=== PATIENT | male | born 1965 | race Caucasian/White ===

== ENCOUNTER 2025-01-30 05:22 | Observation (INO) ==
--- NOTE | 2024-12-17 12:36 | PAT Medication Instructions ---
Medication Instructions Date of Service December 17, 2024 Home Medications Medication Instructions Recorded celecoxib 100 mg capsule (Celebrex) 100 mg PO BID #60 caps 11/17/24 tramadol 50 mg tablet 50 mg PO DAILY PRN pain #30 tabs 12/09/24 testosterone undecanoate 100 mg 100 mg PO QAM #30 caps 12/16/24 capsule multivitamin 1 tab PO QAM celecoxib 100 mg capsule (Celebrex) 100 mg PO BID tramadol 50 mg tablet 50 mg PO DAILY PRN pain testosterone undecanoate 100 mg capsule 100 mg PO QAM amlodipine 2.5 mg tablet 2.5 mg PO QAM atorvastatin 20 mg tablet (Lipitor) 20 mg PO QAM losartan 100 mg-hydrochlorothiazide 25 mg tablet 1 tab PO QAM pantoprazole 20 mg tablet,delayed release (Protonix) 20 mg PO QAM Continue as directed testosterone undecanoate 100 mg capsule 100 mg PO QAM ASK your surgeon for instructions celecoxib 100 mg capsule (Celebrex) 100 mg PO BID DO NOT take the morning of surgery multivitamin 1 tab PO QAM losartan 100 mg-hydrochlorothiazide 25 mg tablet 1 tab PO QAM Take morning of surgery With a small sip of water, OTHERWISE NOTHING TO EAT OR DRINK AFTER MIDNIGHT: tramadol 50 mg tablet 50 mg PO DAILY PRN pain (if needed) amlodipine 2.5 mg tablet 2.5 mg PO QAM atorvastatin 20 mg tablet (Lipitor) 20 mg PO QAM pantoprazole 20 mg tablet,delayed release (Protonix) 20 mg PO QAM Take evening before surgery tramadol 50 mg tablet 50 mg PO DAILY PRN pain (if needed) Other Notes If you have any questions please call us at [phone] or [phone] or [phone] or [phone]
--- NOTE | 2024-12-24 13:36 | Anesthesiology Consultation ---
Date of Service December 24, 2024 Assessment & Plan (1) Encounter for pre-operative examination: Chart Review Chart Review: Acceptable Risk for Surgery and Patient seen in Pre Admission Testing Pt currently scheduled as 23 hours observation. If surgeon decides to change patient to Same Day Joint, patient would be acceptable risk for FLORENCIO, pending patient is motivated, has good support and surgeon's office completes [facility] Program preop requirements. Per PAT appt on 12/24/24, patient with mild cough and post nasal drip. Symptom onset >11 days from surgery date. No recent sick contacts or recent illness/disease positive tests. Will leave to surgeon's discretion if preop Covid testing needed. Patient educated symptoms will need resolved by DOS History Surgery Operation Date: 01/30/25 09:00 Proposed Procedures p Right Anterior Total Hip Arthroplasty - Last Myers DO Height/Weight Height: 6 ft 1 in Weight: 123.377 kg Allergies Allergy/AdvReac Type Severity Reaction Status Date / Time NSAIDS (Non-Steroidal AdvReac Intermediate See below Verified 12/24/24 13:31 Anti-Inflamma Medications Home Medications Medication Instructions Recorded Confirmed Last Taken multivitamin 1 tab PO QAM 04/17/23 12/17/24 04/17/23 celecoxib 100 mg capsule (Celebrex) 100 mg PO BID #60 caps 11/17/24 12/17/24 Unknown tramadol 50 mg tablet 50 mg PO DAILY PRN pain #30 tabs 12/09/24 12/17/24 Unknown testosterone undecanoate 100 mg 100 mg PO QAM #30 caps 12/16/24 12/17/24 Unknown capsule amlodipine 2.5 mg tablet 2.5 mg PO QAM 12/17/24 12/17/24 Unknown atorvastatin 20 mg tablet (Lipitor) 20 mg PO QAM 12/17/24 12/17/24 Unknown losartan 100 1 tab PO QAM 12/17/24 12/17/24 Unknown mg-hydrochlorothiazide 25 mg tablet pantoprazole 20 mg tablet,delayed 20 mg PO QAM 12/17/24 12/17/24 Unknown release (Protonix) Past Medical History Medical History Anemia hx, no recent issues Benign essential hypertension History of blood transfusion (2022) Hx of gastritis (2022) denies GERD (due to too many NSAIDs) Hx of psoriasis Hyperlipidemia Exercise / Class Metabolic Activity II 4-5 Yardwork/Stairs/Walk up hill (one flight of stairs - no chest pain or SOB ) Past Family History Family History Mother Pulmonary embolism Grandfather (Maternal) Lung cancer Father Emphysema, unspecified Past Surgical History Surgical History History of esophagogastroduodenoscopy (EGD) (2022) Past Anesthesia History No Hx of Anesthesia Complications and No Family Hx of Anesthesia Complications History of PONV No Hx of PONV and No Hx of Motion Sickness Social History Smoking Status: Former smoker Do You Dip or Chew Tobacco: No (quit 25 years ago; advised) Smoking End Date: 30 years ago Hx Alcohol Use: Yes Alcohol type: beer alcohol intake frequency: 0-2 drinks per day (2 beers/day) Hx Substance Use: No substance use type: does not use Review of Systems - Mild cough/post nasal drip x 2-3 days. Patient denies chest pain, shortness of breath, dyspnea on exertion, reflux, cough, wheezing, palpitations. No hx of seizures, stroke, AK, apnea/snoring. No hx of blood clots Physical Exam Vital Signs VITALS BP 131/81 P 88 TEMP 97.8 SP02 94% RESP 16 Constitutional no acute distress ENMT Mouth: no TMJ clicking Thyromental Distance: > or= 3.5 Finger Breadths (3.5) Mallampati Class: III Caps to side tooth Neck neck extension not limited Respiratory normal respiratory effort; no respiratory distress Auscultation: lungs clear to auscultation bilaterally; no wheezes Cardiovascular Rate/Rhythm: regular rate and regular rhythm Heart Sounds: no murmur Vessels: no carotid bruit Musculoskeletal Spine: no pain with cervical ROM Extremities: extremities normal to inspection Psychiatric Orientation: alert Lab Results Anesthesia Preop Results Results Anesthesia Widget: WBC 7.19 K/ul (4.8-10.8) 12/24/24 Hgb 12.5 g/dl (14.0-18.0) L 12/24/24 Hct 38.3 % (42.0-52.0) L 12/24/24 Plt 291 K/uL (130-400) 12/24/24 Na 139 mmol/L (136-145) 12/24/24 K 3.9 mmol/L (3.5-5.1) 12/24/24 Cl 100 mmol/L (98-107) 12/24/24 CO2 32 mmol/L (21-32) 12/24/24 BUN 19 mg/dl (6-23) 12/24/24 Creat 1.11 mg/dl (0.6-1.4) 12/24/24 Glucose Level 99 mg/dl (70-99(Fasting)) 12/24/24 PT 10.3 Seconds (9.0-12.0) 12/24/24 PTT 29 Seconds (21-31) 12/24/24 INR 0.9 (0.9-1.1) 12/24/24 Blood Type A Negative 12/24/24 Antibody Screen NEGATIVE 12/24/24 Testing Electrocardiogram Date: 12/24/24 Findings: + NSR @ (88bpm) Low voltage QRS Inferior infarct, age undetermined When compared to EKG from April 17, 2022- no significant change was found per cardio Chest X-Ray Date: 12/24/24 Findings: + NAD
--- NOTE | 2025-01-28 12:27 | History & Physical Report ---
Date of Service January 28, 2025 Assessment & Plan (1) Osteoarthritis of right hip: We will proceed with a right anterior total of arthroplasty. Postoperatively, he will be started on aspirin for DVT prophylaxis and kept overnight in the hospital for postop medical management. He plans to use [facility] upon discharge. History of Present Illness Chief Complaint: Osteoarthritis of the right hip. Primary Care Provider: ALEX Fung Abilio is a pleasant 59-year-old male who has been dealing with chronic increasing right hip and groin pain. X-rays and clinical exam have been diagnostic for advanced osteoarthritis of the right hip. He has been seeing one of the nonoperative providers in our office. Unfortunately, after failing a y ear of conservative treatment, he has elected to proceed with a right anterior total hip arthroplasty. . Allergies Allergy/AdvReac Type Severity Reaction Status Date / Time NSAIDS (Non-Steroidal AdvReac Intermediate See below Verified 01/21/25 08:28 Anti-Inflamma Home Medications Medication Instructions Recorded Confirmed Type multivitamin 1 tab PO QAM 04/17/23 01/21/25 History celecoxib 100 mg capsule (Celebrex) 100 mg PO BID #60 caps 11/17/24 01/21/25 Rx testosterone undecanoate 100 mg 100 mg PO QAM #30 caps 12/16/24 01/21/25 Rx capsule amlodipine 2.5 mg tablet 2.5 mg PO QAM 12/17/24 01/21/25 History atorvastatin 20 mg tablet (Lipitor) 20 mg PO QAM 12/17/24 01/21/25 History losartan 100 1 tab PO QAM 12/17/24 01/21/25 History mg-hydrochlorothiazide 25 mg tablet pantoprazole 20 mg tablet,delayed 20 mg PO QAM 12/17/24 01/21/25 History release (Protonix) tramadol 50 mg tablet 50 mg PO DAILY PRN pain #30 tabs 01/15/25 01/21/25 Rx Past Med/Surg History Problem List Osteoarthritis of right hip Osteoarthritis of knees, bilateral Obesity Hyperlipidemia Effusion, left knee (Acute) Arthritis of knee, left Benign essential hypertension Psoriasis Medical History Hx of gastritis (2022) denies GERD (due to too many NSAIDs) Hx of psoriasis Hyperlipidemia Benign essential hypertension History of blood transfusion (2022) Anemia hx, no recent issues Surgical History History of esophagogastroduodenoscopy (EGD) (2022) Family History Mother Pulmonary embolism Grandfather (Maternal) Lung cancer Father Emphysema, unspecified Social History Smoking Status: Former smoker Tobacco Type: Cigarettes Age Started Using Tobacco: 12; Age Quit Using Tobacco: 32; packs per day: 1; Second Hand Exposure: Yes (hx growing up); Do You Dip or Chew Tobacco: No (quit 25 years ago; advised); Hx Alcohol Use: Yes Alcohol type: beer Hx Substance Use: No Preferred Language: Irish Communication Ability: Effective Lead Consultant Required: No Beliefs That Will Affect Care: None marital status: Legally Current Living Situation: Family Current Living Situation Comment: son Feels Safe at Home: Yes Assistive Devices: Glasses Review of Systems All systems reviewed & are unremarkable except as noted in HPI & below. Physical Exam On physical exam of the right hip, he has decreased range of motion. He has pain with internal/external rotation. Most of his pain is located in the groin.. Constitutional WD/WN, vitals as above Eyes PERRL, conjunctivae normal, anicteric sclerae ENMT external ear and nose normal, oropharynx normal Neck trachea midline, no thyromegaly Respiratory normal respiratory effort Cardiovascular RRR, no murmur, no edema Gastrointestinal (Abdomen) normal bowel sounds, soft, nontender, no hepatosplenomegaly Psychiatric A+Ox3, euthymic affect Results & Data Results & Data Laboratory Results . Diagnostic Findings X-rays of the right hip show advanced osteoarthritis with joint space narrowing, osteophyte formation, and [id number] articulation. PG Care Time/CCT Total # of Minutes Spent Total Time Spent with Patient: Total time spent is greater than 50% in coordination of care (as documented) at patient's floor/unit and/or counseling patient: Coding Level of Care Code None Diagnoses Osteoarthritis of right hip M16.11
[~2025-01-30 05:22] MED LIST: ALLERGY Noted to ORDERED Medication SCH
[2025-01-30] MEDS: LR 500ML BOLUS, THEN 15ML/HR IV SCH (05:47)
[2025-01-30] MEDS ORDERED: ROPIVACAINE 0.5% HCL/PF 246 MG, Ketorolac (*for OR use only*) 30 MG, EPINEPHrine 30MG/3... INFIL SCH (06:00)
[2025-01-30] MEDS: ACETAMINOPHEN 500 MG TAB PO SCH ×2 (06:18→14:00)
[2025-01-30] MEDS: FAMOTIDINE 20 MG TAB PO SCH (06:18)
[2025-01-30] MEDS: GABAPENTIN 600 MG DOSE PO SCH (06:18)
[2025-01-30] MEDS: LR 60ML/HR IV SCH (06:18)
[2025-01-30] MEDS: dexAMETHasone**PF** 10 MG/ML VIAL IV SCH (06:19)
[2025-01-30] MEDS ORDERED: BUPIVACAINE 0.5 % 5 MG/1 ML PF 10ML VIAL ONE (06:25)
[2025-01-30] MEDS ORDERED: ONDANSETRON INJ 2 MG/ML 2 ML VIAL ONE (06:28)
[2025-01-30] MEDS ORDERED: MIDAZOLAM HCL 1 MG/ML 2ML VIAL ONE ×2 (06:28→06:46)
[2025-01-30] MEDS ORDERED: PROPOFOL IV EMULSION 10 MG/ML 20 ML VIAL IV ONE ×2 (06:28→08:20)
--- NOTE | 2025-01-30 06:40 | History & Physical Bridge Note ---
Date of Service January 30, 2025 History & Physical Bridge Note I have examined the patient, reviewed the History & Physical and in the interval since the performance of the History & Physical I have noted the following changes of clinical significance: no changes noted
[2025-01-30] MEDS: TRANEXAMIC ACID 1,000 MG **IV Pre-op IV SCH (06:45)
--- NOTE | 2025-01-30 06:49 | Anesthesiology Consultation ---
Date of Service January 30, 2025 Assessment & Plan Chart Review Chart Review: Acceptable Risk for Surgery Consults Requested none History Surgery Operation Date: 01/30/25 07:00 Proposed Procedures p Right Anterior Total Hip Arthroplasty - Last Myers DO Height/Weight Height: 6 ft 1 in Weight: 122.3 kg Allergies Allergy/AdvReac Type Severity Reaction Status Date / Time NSAIDS (Non-Steroidal AdvReac Intermediate See below Verified 01/30/25 05:40 Anti-Inflamma Medications Home Medications Medication Instructions Recorded Confirmed Last Taken multivitamin 1 tab PO QAM 04/17/23 01/30/25 01/29/25 07:00 celecoxib 100 mg capsule (Celebrex) 100 mg PO BID #60 caps 11/17/24 01/30/25 01/22/25 07:00 testosterone undecanoate 100 mg 100 mg PO QAM #30 caps 12/16/24 01/30/25 01/29/25 07:00 capsule amlodipine 2.5 mg tablet 2.5 mg PO QAM 12/17/24 01/30/25 01/30/25 03:30 atorvastatin 20 mg tablet (Lipitor) 20 mg PO QAM 12/17/24 01/30/25 01/29/25 07:00 losartan 100 1 tab PO QAM 12/17/24 01/30/25 01/30/25 03:30 mg-hydrochlorothiazide 25 mg tablet (Hyzaar) pantoprazole 20 mg tablet,delayed 20 mg PO QAM 12/17/24 01/30/25 01/30/25 03:30 release (Protonix) tramadol 50 mg tablet 50 mg PO DAILY PRN pain #30 tabs 01/15/25 01/30/25 01/30/25 03:30 Active Medications Generic Name Dose Route Start Last Admin Trade Name Freq PRN Reason Stop Dose Admin Acetaminophen 1,000 mg 01/30/25 06:00 01/30/25 06:18 Acetaminophen 500 Mg Tab PO 01/30/25 18:00 1,000 mg PREOP ROSE Administration Dexamethasone Sodium Phosphate 10 mg 01/30/25 06:00 01/30/25 06:19 DexamethasonePf 10 Mg/Ml Vial IV 01/30/25 18:00 10 mg PREOP ROSE Administration Famotidine 20 mg 01/30/25 06:00 01/30/25 06:18 Famotidine 20 Mg Tab PO 01/30/25 18:00 20 mg PREOP ROSE Administration Gabapentin 600 mg 01/30/25 06:00 01/30/25 06:18 Gabapentin 600 Mg Dose PO 01/30/25 18:00 600 mg PREOP ROSE Administration Lactated Ringer's 1,000 mls @ 15 mls/hr 01/30/25 06:00 01/30/25 05:47 Lr IV 01/30/25 18:00 15 mls/hr .Q24H ROSE Administration Lactated Ringer's 1,000 mls @ 60 mls/hr 01/30/25 06:00 01/30/25 06:18 Lr IV 01/30/25 22:39 Not Given .[id number] ROSE Tranexamic Acid 1,000 mg in 100 mls @ 600 mls/hr 01/30/25 06:00 01/30/25 06:45 Tranexamic Acid / 0.7% Nacl IV 01/30/25 18:00 600 mls/hr TODAY@0600 ROSE Administration NPO Date Last Intake of Fluids: 01/29/25 Time Last Intake of Fluids: 19:00 Date Last Intake of Solids: 01/29/25 Time Last Intake of Solids: 15:00 Past Medical History Medical History Hx of gastritis (2022) denies GERD (due to too many NSAIDs) Hx of psoriasis Hyperlipidemia Benign essential hypertension History of blood transfusion (2022) Anemia hx, no recent issues Past Family History Family History Mother Pulmonary embolism Grandfather (Maternal) Lung cancer Father Emphysema, unspecified Past Surgical History Surgical History History of esophagogastroduodenoscopy (EGD) (2022) Social History Smoking Status: Former smoker Do You Dip or Chew Tobacco: No (quit 25 years ago; advised) Smoking End Date: 30 years ago Hx Alcohol Use: Yes Alcohol type: beer alcohol intake frequency: 0-2 drinks per day (2 beers/day) Hx Substance Use: No substance use type: does not use Physical Exam Vital Signs Last Vital Signs Temp 36.9 C 01/30/25 05:51 Pulse 99 H 01/30/25 05:51 Resp 20 01/30/25 05:51 Pulse Ox 95 01/30/25 05:51 O2 Del Method Room Air 01/30/25 05:51
[2025-01-30] MEDS: ceFAZolin 3000MG 3,000 MG/72.5 ML BAG IV SCH (07:00)
[2025-01-30] MEDS ORDERED: PHENYLEPHRINE 100MCG/ML 5ML SYR ONE ×3 (07:23→08:07)
[2025-01-30] MEDS ORDERED: ePHEDrine sulfate 50 MG/5 ML SYR ONE (07:23)
[2025-01-30] MEDS: ROPIV 0.5% 246mg, Ketorolac 30mg, EPINEPHrine 0.5mg in NSS INFIL SCH (07:33)
[2025-01-30] MEDS: TRANEXAMIC ACID 1,000 MG **IV Intra-op IV SCH (08:12)
--- NOTE | 2025-01-30 08:18 | Operative Report ---
PG Post Operative Report Pre & Post Diagnosis Operation Date: 01/30/25 07:00 Pre-Op Diagnosis: Left Hip Arthritis Post-Op Diagnosis: Left Hip Arthritis I identified the patient and participated in the time-out.: Yes Procedure Operation Date: 01/30/25 07:00 Actual Procedures p Right Anterior Total Hip Arthroplasty(Right) - Last Myers DO Surgeon Last Myers DO Environmental Advisor Tutu German PA-C Estimated Blood Loss 250 Findings Consistent with Post-Op Diagnosis Specimens Right femoral head Description of Procedure Implants used I used a [employer]immer[employer]omet total hip arthroplasty system with a size 1 Z1 high offset stem, a 54 mm G7 cup with a 25mm screw, an E1 polyethylene liner, a 40 mm ceramic head with a +7 neck. Abilio arrived at the hospital for the above procedure. He was seen in the preoperative holding area and the operative extremity was identified and signed. He was given a spinal anesthetic, a preoperative antibiotic, and TXA. He was then taken back to the operating room and laid on the table in the supine position. He was given basic sedation. The operative leg was secured to a Puristst leg positioner. The hip was then prepped and draped in sterile fashion. A timeout was done and the patient and the operative extremity was properly identified. An anterior approach was used. Dissection was taken down through the fascia and the tensor muscle belly was retracted laterally and the rectus was retracted medially. The circumflex vessels were identified and ligated. The capsule was then incised and tagged for later repair. The femoral neck was then cut and the femoral head was removed. The acetabulum was exposed. Time was spent doing a complete circumferential labral release. Sequential reaming of the acetabulum up to a size 53 reamer was done. Final reamings were done under fluoroscopy to ensure appropriate version. A Biomet 54 mm G7 cup was then impacted into place. A single 25 mm screw was placed. The E1 polyethylene liner was then snapped into place. Surrounding soft tissues were then injected with 100 cc of an orthopedic pain control cocktail. The proximal femur was then exposed. Sequential broaching up to a size 1 broach was done. Off that broach a size 40 head with a +7 neck was trialed. The hip was reduced and fluoroscopic images showed anatomic alignment of the implants in acceptable length. The broach was removed. The final size 1 high offset Z1 stem was then impacted into place. A ceramic 40 mm head with a +7 neck was then impacted onto the stem and the hip was reduced. Final fluoroscopic images showed anatomic alignment of the hip. The capsule was then closed with #1 Vicryl suture. A dilute betadyne lavage was then done for 3 minutes. The joint was then irrigated with normal saline solution. The fascia was closed with #1 PDS suture. Skin was closed with 2-0 Vicryl, karen, and a Silverlon dressing. He was then transferred to a hospital bed and taken to the post anesthesia care unit in stable condition. He tolerated the procedure well. Tutu German PA-C, was present for the entire procedure. He was critical for patient positioning, prepping, draping, retraction exposure, wound closure and application of sterile dressing. I attest to the content of the Intraoperative Record and any orders documented therein. Any exceptions are noted below.
[2025-01-30] MEDS ORDERED: ONDANSETRON INJ 2 MG/ML 2 ML VIAL IV PRN ×2 (08:39→11:15)
[2025-01-30] MEDS ORDERED: fentaNYL citrate PF 100 MCG/2 ML VIAL IV PRN (08:39)
[2025-01-30] MEDS ORDERED: PROMETHAZINE HCL 6.25 MG in SODIUM CHLORIDE 0.9% 50 ML IV PRN (08:39)
[2025-01-30] MEDS ORDERED: ePHEDrine sulfate 50 MG/ML AMP IV PRN (08:39)
[2025-01-30] MEDS ORDERED: ATROPINE SULFATE 0.1 MG/ML 10ML SYR IV PRN (08:39)
[2025-01-30] MEDS ORDERED: HYDROmorphone INJ 2 MG/ML SYR/VIAL IV PRN (08:39)
--- NOTE | 2025-01-30 08:57 | Fluoroscopy Report ---
FL hip RT 1V CLINICAL HISTORY: RIGHT ANTERIOR HIPright hip arthroplasty COMPARISON STUDY: November 05, 2024 FLUOROSCOPY TIME: 32.1 seconds FLUOROSCOPY IMAGES: 1 EXPOSURE DOSE: 11.579 mGy FINDINGS: Satisfactory alignment of the right hip arthroplasty. Expected postoperative soft tissue sw elling with deep tissue air. No acute fracture or unexpected opaque foreign body. IMPRESSION: Fluoroscopic assistance as above. ACT 112: Negative or not required by law. Electronically signed by: Zenon oSlis M.D. 01/30/2025 8:55 AM
--- NOTE | 2025-01-30 09:14 | XRay Report ---
XR hip 1V RT w pelvis CLINICAL HISTORY: Postoperative evaluation. COMPARISON: Right hip radiographs November 05, 2014. FINDINGS: Alignment of the total right hip arthroplasty is anatomic. There is no periprosthetic frac ture or unexpected radiopaque foreign body. There are skin karen. IMPRESSION: Expected findings following total right hip arthroplasty. ACT 112: Negative or not required by law. Electronically signed by: Adrian Sykes M.D. 01/30/2025 9:12 AM
[2025-01-30] MEDS ORDERED: MAGNESIUM HYDROXIDE SUSP 30 ML UDC PO PRN (11:15)
[2025-01-30] MEDS ORDERED: METOCLOPRAMIDE HCL INJ 5 MG/ML 2 ML VIAL IV PRN (11:15)
[2025-01-30] MEDS ORDERED: bisacodyL 10 MG SUPP PR PRN (11:15)
[2025-01-30] MEDS ORDERED: HYDROmorphone INJ 0.5 MG/0.5 ML SYR IV PRN (11:15)
[2025-01-30] MEDS ORDERED: oxyCODONE HCL IR 5 MG TAB (IMMEDIATE RELEASE) PO PRN (11:15)
[2025-01-30] MEDS ORDERED: NALOXONE HCL 0.4 MG/1 ML VIAL/CARP IV PRN (11:15)
[2025-01-30] MEDS: KETOROLAC TROMETHAMINE 15 MG/ML VIAL IV SCH (11:30)
[2025-01-30] MEDS: SODIUM CHLORIDE 0.9% 1,000 ML IV SCH (11:30)
[2025-01-30] MEDS ORDERED: PANTOprazole 40 MG TAB PO SCH (11:30)
--- NOTE | 2025-01-30 11:31 | Anesthesiology Progress Note ---
Date of Service January 30, 2025 Anesthesia Post Procedure Vital Signs Vital Signs: Temp Pulse Pulse Resp BP Pulse Ox O2 Del Method 01/30/25 10:30 88 20 135/85 94 Room Air 01/30/25 10:15 36.7 C 94 H 19 121/96 96 Room Air 01/30/25 10:00 85 19 131/87 97 Room Air 01/30/25 09:45 87 19 142/87 H 93 Room Air 01/30/25 09:30 84 16 117/78 94 Room Air 01/30/25 09:15 89 16 113/78 96 Room Air 01/30/25 09:10 36.5 C 92 H 14 105/76 95 Room Air 01/30/25 09:00 95 H 15 105/69 95 Room Air 01/30/25 08:50 95 H 13 101/70 96 Room Air 01/30/25 08:43 36.5 C 103 H 12 103/66 94 Room Air, Oxymask 01/30/25 05:51 36.9 C 99 H 20 95 Room Air Pain Intensity Right Hip: Pain Intensity: 5 Transfer of Care Handoff Completed per policy Notes Mental Status: alert / awake / arousable and participated in evaluation Patient Amnestic to Procedure: Yes Nausea / Vomiting: adequately controlled Pain: adequately controlled Airway Patency, RR, SpO2: stable & adequate BP & HR: stable & adequate Hydration State: stable & adequate Neuraxial Anesthesia: was administered and sensory block is resolving Anesthetic Complications: no major complications apparent and Pt Satisfied with anesthetic care
[2025-01-30] MEDS: DOCUSATE SODIUM 100 MG CAP PO SCH (11:33)
[2025-01-30] MEDS: MULTIVITAMIN TAB PO SCH (12:46)
[2025-01-30] MEDS: ATORVASTATIN 20 MG TAB PO SCH (12:46)
[2025-01-30] MEDS: ASPIRIN 81 MG ECTAB PO SCH (12:46)
[2025-01-30] MEDS: amLODIPine BESYLATE 5 MG TAB PO SCH (12:46)
[2025-01-30] MEDS: LOSARTAN/HCTZ 50/12.5MG TAB PO SCH (12:47)
[2025-01-30] MEDS: PANTOprazole 40 MG TAB PO SCH (12:47)
[2025-01-30] MEDS: ceFAZolin 2000MG 2,000 MG/15 ML SYR IV SCH (14:00)
[2025-01-30] MEDS: SENNA 8.6 MG TAB PO SCH (20:25)
[2025-01-30 23:15] VITALS: RESP 16
--- NOTE | 2025-01-31 06:56 | Orthopedic Progress Note ---
Date of Service January 31, 2025 Assessment & Plan (1) Status post right hip replacement: Overall he is doing very well. He is not having much pain in the right hip. He did have some drainage beneath his dressing last night. I talked to the nursing staff and they will change his dressing today. He will be seen by physical therapy today for ambulation and range of motion exercises. He can be discharged to home later today. He will follow-up with orthopedics in 2 weeks. Ricardo Knox was seen and examined at bedside this morning. Overall he is doing very well. He is not having much pain in the right hip. He has been up and ambulating to the bathroom. He has no complaints.. Review of Systems All systems reviewed & are unremarkable except as noted in HPI & below. Physical Exam On physical exam of the right hip, the dressing has been leaking and is reinforced. His leg is out full extension. He has active dorsiflexion plantarflexion of his right ankle.. Results & Data Results & Data Laboratory Results . Diagnostic Findings Postoperative x-rays of the right hip show the prosthesis to be in anatomic alignment without any evidence of fracture, dislocation, or loosening.. PG Care Time/CCT Total # of Minutes Spent Total Time Spent with Patient: Total time spent is greater than 50% in coordination of care (as documented) at patient's floor/unit and/or counseling patient: Coding Level of Care Code 27291 Post Operative Follow-Up Diagnoses Status post right hip replacement Z96.641
--- NOTE | 2025-01-31 06:58 | Discharge Summary ---
Date of Service January 31, 2025 Admission HPI (Per Admitting) Abilio is a pleasant 59-year-old male who has been dealing with chronic increasing right hip and groin pain. X-rays and clinical exam have been diagnostic for advanced osteoarthritis of the right hip. He has been seeing one of the nonoperative providers in our office. Unfortunately, after failing a year of conservative treatment, he has elected to proceed with a right anterior total hip arthroplasty. . Admission Exam (Per Admitting) On physical exam of the right hip, he has decreased range of motion. He has pain with internal/external rotation. Most of his pain is located in the gr oin.. Principal Diagnosis Same as "Discharge Diagnosis" noted below under Discharge Instructions. Discharge Exam On physical exam of the right hip, the dressing has been leaking and is reinforced. His leg is out full extension. He has active dorsiflexion plantarflexion of his right ankle.. Discharge Data Procedures Performed Operation Date: 01/30/25 07:00 Actual Procedures p Right Anterior Total Hip Arthroplasty(Right) - Last Myers DO Ordered Studies 01/30/25 07:00 FL hip RT 1V Routine Hospital Course (1) Status post right hip replacement: On January 30, 2025 Abilio arrived at [facility] and underwent a right hip replacement without complication. He had a spinal anesthetic. Postoperatively, he was started on aspirin for DVT prophylaxis and transferred to the general orthopedic floors. His hospital course was uneventful. On postop day #1, his vital signs were stable and his pain was well-controlled. He was able to participate well with physical therapy doing ambulation and range of motion exercises. He was then discharged to home. He will follow-up with orthopedics in 2 weeks. PG Care Time/CCT Total # of Minutes Spent Total Time Spent with Patient: Total time spent is greater than 50% in coordination of care (as documented) at patient's floor/unit and/or counseling patient: Discharge Plan Discharge Items Patient Disposition: Home - Self-Care Reason For Visit: Left Hip Arthritis Discharge Diagnosis: Right hip replacement Activity: Per Instructions section Non-emergency contact: Surgeon Call non-emergency contact if: your wound has increased redness and your wound has increased drainage Follow-up/Referrals: Alicia Benjamin CRNP [Primary Care Provider] - Diet: Regular Addtl Attending Provider Instructions: Activity and Therapy Recommendations: * If you are using [facility] then therapy will be provided at your home until they feel you have accomplished all of your goals. * If you are using [facility] then Physical Therapy will be provided until they feel you are ready to start Outpatient Physical Therapy. * If you are not using home therapy then Outpatient Physical Therapy should start about 3-5 days from your day of surgery. Therapy will last about 6-10 weeks * You were shown a series of exercises in the hospital. Do these exercises three times each day including the exercises you were shown in physical therapy. * Get up and walk several times each day.~ For the first four weeks, try not to stand or walk for more than one hour at a time. If you do stand or walk for more than one hour, you will not hurt anything, but your leg will likely swell.~~ * As you feel comfortable, you may change from the walker or crutches to a cane and~then to independent walking. Medications: * Narcotic You will likely be sent home from the hospital with a prescription for the narcotic pain medication that worked best throughout your stay. * Cefadroxil -take the antibiotic twice a day for 10 days to help prevent infection. * Aspirin Most patients will be required to take Aspirin 81mg twice a day for 6 weeks after surgery. This is obtained [id number] and a prescription is not necessary. * Other medications may be prescribed for specific circumstances. If you have any questions, please call the office at . * Resume previous home medications unless otherwise instructed TEDs/Elastic Stockings: The white elastic stockings help limit swelling and prevent blood clots from forming in your legs. The more you wear them, the more they work. Wear them for 2 weeks. Dressing Care: Leave the Silverlon dressing in place for 7 days. After 7 days you may remove the dressing. If the incision is not draining then you may leave the karen open to air. If there is a little bit of drainage or if the karen are getting stuck on your clothing then cover the incision with a dry dressing. The karen will be removed at your 2 week follow-up appointment. Showering: You may shower with the Silverlon dressing in place. Do not let the shower spray hit the dressing directly. Pat the Silverlon dressing dry. If the dressing becomes wet underneath, then simply remove the dressing. Keep the incision dry until you are 7 days out from the day of surgery. After 7 days you may remove the Silverlon dressing and shower with the karen exposed. Let soapy water run over the karen and pat them dry. Do not scrub or soak the incision. Diet: You may resume your previous diet. Things To Watch For: * Drainage from the incision site that occurs more than one week after your surgery. * Increased redness at the incision site. * Fever above 102 degrees Fahrenheit. * Unusual chest pain or shortness of breath. * Call [facility] at with any of the above problems Follow-Up Visit: Follow-up with Dr. Myers's office 2-3 weeks after your day of surgery. We will remove your karen and answer any questions. If you have any additional questions or concerns, Dr Myers is usually in the office at the same time and will be available An appointment was probably scheduled when you signed-up for surgery in the office. If you have any questions call Office Instructions: More detailed instructions as well as Frequently Asked Questions were provided in a folder by our office when you signed-up for surgery. Please review these instructions when you get home. If you have any further questions or concerns, please feel free to call the office at [phone] Pending Studies at Discharge: No Stand-Alone Forms: [facility], Smoking Cessation Medications and DC Order Prescriptions: New cefadroxil 500 mg capsule 500 mg PO BID 10 Days Qty: 20 0RF oxycodone 5 mg tablet 5 mg PO Q6H PRN (Reason: pain) Qty: 30 0RF aspirin 81 mg Tablet,Delayed Release (Dr/Ec) 81 mg PO BID 42 Days Qty: 84 0RF Continued celecoxib [Celebrex] 100 mg capsule 100 mg PO BID Qty: 60 2RF tramadol 50 mg tablet 50 mg PO DAILY PRN (Reason: pain) Qty: 30 0RF Patient Comments: usually takes every morning testosterone undecanoate 100 mg capsule 100 mg PO QAM Qty: 30 0RF Rx Instructions: PT REPORTED - OTC SUPPLEMENT multivitamin Tablet 1 tab PO QAM atorvastatin [Lipitor] 20 mg tablet 20 mg PO QAM amlodipine 2.5 mg tablet 2.5 mg PO QAM pantoprazole [Protonix] 20 mg tablet,delayed release (DR/EC) 20 mg PO QAM losartan-hydrochlorothiazide [Hyzaar] 100-25 mg tablet 1 tab PO QAM Discharge Orders: Discharge Order (Routine); Ordered 01/31/25 Ordered By: Last Myers Admission Data Admit Date/Time: 01/30/25 08:46 Attending Provider: Last Myers Admit Provider: Last Myers Primary Care Provider: Alicia Benjamin
[2025-01-31 07:04] VITALS: BP 124/77; PULSE 91; TEMP 98.2; O2SAT 95
[2025-01-31] MEDS: dexAMETHasone 4 MG TAB PO SCH (08:20)
== END 2025-01-31 10:44 | disposition home or self-care (01) ==
LOC: 3E 05:22 → ASU 05:22

== ENCOUNTER 2025-05-04 08:17 | Observation (INO) ==
--- NOTE | 2025-04-27 14:06 | Anesthesiology Consultation ---
Date of Service April 27, 2025 Assessment & Plan (1) Encounter for pre-operative examination: - Infectious disease screening: Per assessment on 04/27/25- No known recent infectious disease contacts or current infectious disease symptoms. - S/P Right anterior total hip arthroplasty (01/30/25): SAB at L3-4 (1 attempt) at [facility]. No issues noted per post-op anesthesia progress note. - Outpatient joint assessment: Pt currently scheduled for inpatient pathway. If surgeon requests review for outpatient joint pathway, patient is an acceptable candidate for outpatient joint program from anesthesia standpoint pending surgeon's office assessment that patient is motivated, has good support and completes Same Day Joint Program preop requirements. Chart Review Chart Review: Acceptable Risk for Surgery and Patient NOT seen in Pre Admission Testing History Surgery Operation Date: 05/04/25 12:05 Proposed Procedures p Robotic assisted Left Total Knee Arthroplasty - Last Myers, Height/Weight Height: 6 ft 1 in Weight: 123.377 kg Allergies Allergy/AdvReac Type Severity Reaction Status Date / Time NSAIDS (Non-Steroidal AdvReac Intermediate See below Verified 01/30/25 05:40 Anti-Inflamma Medications Home Medications Medication Instructions Recorded Confirmed Last Taken multivitamin 1 tab PO QAM 04/17/23 04/27/25 01/29/25 07:00 testosterone undecanoate 100 mg 100 mg PO QAM #30 caps 12/16/24 04/27/25 01/29/25 07:00 capsule pantoprazole 20 mg tablet,delayed 20 mg PO QAM 12/17/24 04/27/25 01/30/25 03:30 release (Protonix) celecoxib 100 mg capsule (Celebrex) 100 mg PO BID #60 caps 02/02/25 04/27/25 Unknown losartan 100 1 tab PO QAM #90 tabs 03/09/25 04/27/25 Unknown mg-hydrochlorothiazide 25 mg tablet (Hyzaar) atorvastatin 40 mg tablet 40 mg PO DAILY #90 tabs 04/22/25 04/27/25 Unknown amlodipine 2.5 mg tablet 2.5 mg PO QAM #90 tabs 04/23/25 04/27/25 Unknown tramadol 50 mg tablet 50 mg PO DAILY PRN pain #30 tabs 04/23/25 04/27/25 Unknown Past Medical History Medical History Anemia Benign essential hypertension History of blood transfusion (2022) Hx of gastritis (2022) Hx "Due to too many NSAIDs" Hx of psoriasis Hyperlipidemia Osteoarthritis Past Family History Family History Mother Pulmonary embolism Grandfather (Maternal) Lung cancer Father Emphysema, unspecified Past Surgical History Surgical History History of esophagogastroduodenoscopy (EGD) (2022) Hx of colonoscopy 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) [facility] Social History Smoking Status: Former smoker Do You Dip or Chew Tobacco: No (Quit 25 years ago) Smoking End Date: Quit 35 years ago Hx Alcohol Use: Yes Alcohol type: beer alcohol intake frequency: 0-2 drinks per day Hx Substance Use: No substance use type: does not use Lab Results Anesthesia Preop Results Results Anesthesia Widget: WBC 6.68 K/ul (4.8-10.8) 04/22/25 Hgb 12.6 g/dl (14.0-18.0) L 04/22/25 Hct 38.6 % (42.0-52.0) L 04/22/25 Plt 271 K/uL (130-400) 04/22/25 Na 141 mmol/L (136-145) 04/22/25 K 3.7 mmol/L (3.5-5.1) 04/22/25 Cl 104 mmol/L (98-107) 04/22/25 CO2 29 mmol/L (21-32) 04/22/25 BUN 15 mg/dl (6-23) 04/22/25 Creat 0.96 mg/dl (0.6-1.4) 04/22/25 Glucose Level 106 mg/dl (70-99(Fasting)) H 04/22/25 PT 10.1 Seconds (9.0-12.0) 04/22/25 PTT 30 Seconds (21-31) 04/22/25 INR 0.9 (0.9-1.1) 04/22/25 TSH 1.861 uIu/ml (0.300-4.500) 04/22/25 Blood Type A Negative 04/22/25 Antibody Screen NEGATIVE 04/22/25 Testing Electrocardiogram Date: 12/24/24 NSR at 88bpm. Low voltage QRS. Inferior infarct, age undetermined. No significant change compared to 04/17/2023 per licensed guide comparison. Chest X-Ray Date: 12/24/24 FINDINGS: Heart size and pulmonary vasculature are normal. No effusion or consolidation. IMPRESSION: No acute findings.
[~2025-05-04 08:17] MED LIST changes: -ALLERGY Noted to ORDERED Medication SCH; +BUPIVACAINE 0.5 % 5 MG/1 ML PF 10ML VIAL ONE; +BUPIVACAINE/EPINEPHRINE 0.25% 1:200,000 30 ML VIAL ONE; +DEXAMETHASONE SOD INJ 4 MG/ML VIAL ONE; +MIDAZOLAM HCL 1 MG/ML 2ML VIAL ONE; +PROPOFOL IV EMULSION 10 MG/ML 20 ML VIAL IV ONE
[2025-05-04] MEDS: LR 60ML/HR IV SCH (08:43)
[2025-05-04] MEDS: LR 500ML BOLUS, THEN 15ML/HR IV SCH (08:43)
[2025-05-04] MEDS: FAMOTIDINE 20 MG TAB PO SCH (08:44)
[2025-05-04] MEDS: ACETAMINOPHEN 500 MG TAB PO SCH ×2 (08:44→13:31)
[2025-05-04] MEDS: GABAPENTIN 600 MG DOSE PO SCH (08:44)
[2025-05-04] MEDS: dexAMETHasone**PF** 10 MG/ML VIAL IV SCH (08:44)
--- NOTE | 2025-05-04 09:05 | History & Physical Bridge Note ---
Date of Service May 04, 2025 History & Physical Bridge Note I have examined the patient, reviewed the History & Physical and in the interval since the performance of the History & Physical I have noted the following changes of clinical significance: no changes noted
[2025-05-04] MEDS: TRANEXAMIC ACID 1,000 MG **IV Pre-op IV SCH (09:59)
[2025-05-04] MEDS ORDERED: PROMETHAZINE HCL 6.25 MG in SODIUM CHLORIDE 0.9% 50 ML IV PRN (10:12)
[2025-05-04] MEDS ORDERED: ONDANSETRON INJ 2 MG/ML 2 ML VIAL IV PRN ×2 (10:12→12:56)
[2025-05-04] MEDS ORDERED: ATROPINE SULFATE 0.1 MG/ML 10ML SYR IV PRN (10:12)
[2025-05-04] MEDS: ceFAZolin 3000MG 3,000 MG/72.5 ML BAG IV SCH (10:12)
[2025-05-04] MEDS: ORTHO JOINT ANESTHETIC ONE (10:47)
[2025-05-04] MEDS ORDERED: ePHEDrine sulfate 50 MG/5 ML SYR ONE (11:01)
[2025-05-04] MEDS: ROPIV 0.5% 246mg, Ketorolac 30mg, EPINEPHrine 0.5mg in NSS INFIL SCH (11:28)
--- NOTE | 2025-05-04 11:30 | Operative Report ---
PG Post Operative Report Pre & Post Diagnosis Operation Date: 05/04/25 10:00 Pre-Op Diagnosis: Osteoarthritis Knee Left Post-Op Diagnosis: Osteoarthritis Knee Left I identified the patient and participated in the time-out.: Yes Procedure Operation Date: 05/04/25 10:00 Actual Procedures p Robotic Assisted Left Total Knee Arthroplasty(Left) - Last Myers DO Surgeon Last Myers DO Teacher Physically Impaired Tutu German PA-C Estimated Blood Loss 30 Findings Consistent with Post-Op Diagnosis Specimens Left femoral and tibial bone Description of Procedure Implants used: I used a Angeles Persona total knee arthroplasty system with a size 11 narrow PS femur, F tibia, 34 oval patella, and a size 10 CPS polyethylene bearing. All components were cemented in place with Biomet cement. Abilio arrived [facility] for the above procedure. He was seen in the preoperative holding area and the operative extremity was identified and signed. he was given a preoperative antibiotic, TXA, a spinal anesthetic and an adductor nerve block. He was taken back to the operating room and laid on the table in supine position. He was given basic sedation. The operative knee was then prepped and draped in sterile fashion. A timeout was done, and the patient and the operative extremity was properly identified. A midline incision was made directly over the patella. Dissection was taken down to the extensor mechanism. A medial parapatellar arthrotomy was used. The medial retinaculum was released and the fat pad was mostly excised. The knee was flexed and the ACL, PCL, and meniscus were removed. The alignment of the knee replacement was assisted with a AngelesElastra robotic knee. The femoral array was pinned in the distal femur and the tibial array was pinned using a percutaneous technique in the upper shaft of the tibia. The robot was appropriately calibrated and the structure of the knee was mapped out. The components were then manipulated on the screen to account for any malalignment and to assist in gap balancing. Once I was happy with the placement of the components on the screen, a distal femoral cutting guide was brought in place. The distal femur was then resected. The femur measured to be a size 11. A 4-in-1 cutting block was then put into place by the robot and 2 peg holes were drilled. The 4-in-1 cutting block was then impacted into place and anterior, posterior, and chamfer cuts were made. The cutting block was then brought down to the tibia and pinned into place. The proximal tibia was then resected. The posterior aspect of the knee was then opened up and any additional meniscus fragments and osteophytes were removed. The tibia measured to be a size F. The tibial plate was then placed in the appropriate rotation and the tibia was drilled and punched. Trial components were then placed. The patella was then everted and 9 mm was resected off the posterior aspect of the patella. The patella measured to be a size 34 oval. 3 peg holes were then drilled. A trial patella was placed. A size 10 CPS polyethylene insert was then trialed. The knee was brought through a full range of motion and felt to be stable. Trial components were then removed. The surrounding soft tissues were injected with 100 cc of an orthopedic pain control cocktail. All components were then cemented into place with Biomet cement. The final polyethylene insert was then snapped into place. Once cement was dry the tourniquet was deflated. Hemostasis was obtained. A dilute betadyne lavage was then done for 3 minutes. The joint was then irrigated with normal saline solution. The medial parapatellar arthrotomy was then closed with #1 Vicryl suture. The skin was closed with 2-0 Vicryl, 3-0V lock suture, and [place]air zip line. A soft compressive dressing was placed. He was then transferred to a hospital bed and taken to the postanesthesia care unit in stable condition. He tolerated the procedure well. Tutu German PA-C, was present for the entire procedure. He was critical for patient positioning, prepping, draping, retraction exposure, wound closure and application of sterile dressing. I attest to the content of the Intraoperative Record and any orders documented therein. Any exceptions are noted below.
--- NOTE | 2025-05-04 12:28 | XRay Report ---
XR knee LT 1 or 2V routine CLINICAL HISTORY: Surgical Post Op COMPARISON: None FINDINGS: There are postsurgical changes of a total left knee arthroplasty and patellar resurfacing. There is gas present within soft tissues consistent with recent surgery. The femoral and tibial comp onents appear well seated. IMPRESSION: Postsurgical changes of a total left knee arthroplasty. No complicating features identifi ed. ACT 112: Negative or not required by law. Electronically signed by: Mesfin Bae M.D. 05/04/2025 12:26 PM
[2025-05-04] MEDS ORDERED: METOCLOPRAMIDE HCL INJ 5 MG/ML 2 ML VIAL IV PRN (12:56)
[2025-05-04] MEDS ORDERED: NALOXONE HCL 0.4 MG/1 ML VIAL/CARP IV PRN (12:56)
[2025-05-04] MEDS ORDERED: HYDROmorphone INJ 0.5 MG/0.5 ML SYR IV PRN (12:56)
[2025-05-04] MEDS ORDERED: MAGNESIUM HYDROXIDE SUSP 30 ML UDC PO PRN (12:56)
--- NOTE | 2025-05-04 13:04 | Anesthesiology Progress Note ---
Date of Service May 04, 2025 Anesthesia Post Procedure Vital Signs Vital Signs: Temp Pulse Pulse Resp BP Pulse Ox O2 Del Method 05/04/25 12:45 92 H 20 127/87 92 Room Air 05/04/25 12:30 96 H 20 119/78 93 Room Air 05/04/25 12:20 99 H 22 123/83 95 Room Air 05/04/25 12:10 97 H 20 106/67 93 Room Air 05/04/25 12:01 36.6 C 98 H 18 94/64 L 95 Oxymask 05/04/25 08:30 36.9 C 99 H 20 154/87 H 94 Room Air O2 Flow Rate 05/04/25 12:45 05/04/25 12:30 05/04/25 12:20 05/04/25 12:10 05/04/25 12:01 6 05/04/25 08:30 Transfer of Care Handoff Completed per policy Notes Mental Status: alert / awake / arousable Patient Amnestic to Procedure: Yes Nausea / Vomiting: adequately controlled Pain: adequately controlled Airway Patency, RR, SpO2: stable & adequate BP & HR: stable & adequate Hydration State: stable & adequate Anesthetic Complications: no major complications apparent
[2025-05-04] MEDS: SODIUM CHLORIDE 0.9% 1,000 ML IV SCH (13:13)
[2025-05-04] MEDS: KETOROLAC TROMETHAMINE 15 MG/ML VIAL IV SCH (13:31)
[2025-05-04] MEDS: ASPIRIN 81 MG ECTAB PO SCH (20:26)
[2025-05-04] MEDS: DOCUSATE SODIUM 100 MG CAP PO SCH (20:27)
[2025-05-04] MEDS: SENNA 8.6 MG TAB PO SCH (20:27)
[2025-05-05 06:07] VITALS: RESP 16
[2025-05-05 07:17] VITALS: BP 129/87; TEMP 97.9; O2SAT 95
[2025-05-05] MEDS: MULTIVITAMIN TAB PO SCH (07:20)
[2025-05-05] MEDS: ATORVASTATIN 40 MG TAB PO SCH (07:20)
[2025-05-05] MEDS: LOSARTAN/HCTZ 50/12.5MG TAB PO SCH (07:20)
--- NOTE | 2025-05-05 09:18 | Orthopedic Progress Note ---
Date of Service May 05, 2025 Assessment & Plan (1) Status post total left knee replacement: * Continue Current Treatment * Disposition: home * Daily treatment: Physical Therapy/ Occupational Therapy per protocol * Weight bearing status: WBAT * Continue to monitor for ABLA * Pain control * DVT prophylaxis, ASA * Office/hospital f/u 2 weeks for progress check and staple/suture removal * Plan for discharge today pending PT/OT clearance Subjective . Active Problems: S/p left TKA POD 1 59 y/o male s/p left TKA. Doing well overall, pain managed and improved function. Denies fever/chills, chest pain/SOB, nausea/vomiting. Otherwise no complaints. Some drainage overnight requiring reinforcement of dressing. Review of Systems All systems reviewed & are unremarkable except as noted in HPI & below. Physical Exam . * General: Alert and oriented, no acute distress * Constitutional: well-developed, well-nourished. * Respiratory: Normal respiratory effort, no distress * Gastrointestinal: No tenderness to palpation, no rigidity or guarding. * Skin: No rash or lesion. * Neurologic: Grossly normal * Musculoskeletal: Left knee surgical dressing CDI, not removed for exam. Otherwise no obvious deformity or overlying skin changes RLE. Diffuse TTP distal thigh and knee region. Otherwise no specific tenderness of proximal thigh, lower leg, foot/ankle. AROM knee flexion 110 degrees. AROM foot/ankle intact. Sensation intact plantar/dorsal foot. Brisk capillary refill. Results & Data Results & Data Laboratory Results . Diagnostic Findings . PG Care Time/CCT Total # of Minutes Spent Total Time Spent with Patient: Total time spent is greater than 50% in coordination of care (as documented) at patient's floor/unit and/or counseling patient: Coding Level of Care Code 81179 Post Operative Follow-Up Diagnoses Status post total left knee replacement Z96.652
[2025-05-05 09:37] VITALS: PULSE 92
== END 2025-05-05 11:25 | disposition home or self-care (01) ==
LOC: ASU 08:17 → 3E 08:17

== ENCOUNTER 2025-09-07 07:21 | Observation (INO) ==
--- NOTE | 2025-08-26 14:04 | Anesthesiology Consultation ---
Date of Service August 26, 2025 Assessment & Plan (1) Encounter for pre-operative examination: Chart Review Chart Review: Acceptable Risk for Surgery and Patient NOT seen in Pre Admission Testing Pt currently scheduled as 23 hours observation. If surgeon decides to change patient to Same Day Joint, patient would be acceptable risk for TKA, pending patient is motivated, has good support and surgeon's office completes Same Day Joint Program preop requirements. -Infectious Disease screening: Per PAT nursing assessment on 08/26/25. No known infectious disease contacts in past 10 days or current infectious disease symptoms. No recent travel outside the country. Left TKA 05/04/25= Done under SAB at L3-4 with 1 attempt Right Anterior Total hip 01/30/25= Done under SAB at L3-4 with 1 attempt History Surgery Operation Date: 09/07/25 09:55 Proposed Procedures p Robotic Assisted Right Total Knee Arthroplasty - Last Myers, Height/Weight Height: 6 ft 1 in Weight: 120.202 kg Allergies Allergy/AdvReac Type Severity Reaction Status Date / Time NSAIDS (Non-Steroidal AdvReac Intermediate See below Verified 08/26/25 13:38 Anti-Inflamma Medications Home Medications Medication Instructions Recorded Confirmed Last Taken multivitamin 1 tab PO QAM 04/17/23 08/26/25 04/27/25 testosterone undecanoate 100 mg 100 mg PO QAM #30 caps 12/16/24 08/26/25 04/27/25 capsule losartan 100 1 tab PO QAM #90 tabs 03/09/25 08/26/25 05/04/25 07:00 mg-hydrochlorothiazide 25 mg tablet (Hyzaar) aspirin 81 mg tablet,delayed 81 mg PO BID #84 tabs 05/05/25 08/26/25 Unknown release (Adult Aspirin Regimen) oxycodone 5 mg tablet 5 mg PO Q6H PRN pain #30 tabs 05/05/25 08/26/25 Unknown amlodipine 2.5 mg tablet 2.5 mg PO QAM #90 tabs 07/16/25 08/26/25 Unknown pantoprazole 20 mg tablet,delayed 20 mg PO QAM #90 tabs 07/16/25 08/26/25 Unknown release (Protonix) celecoxib 100 mg capsule (Celebrex) 100 mg PO BID #60 caps 07/27/25 08/26/25 Unknown tramadol 50 mg tablet 50 mg PO DAILY PRN pain #30 tabs 08/03/25 08/26/25 Unknown atorvastatin 40 mg tablet 40 mg PO QAM 08/26/25 08/26/25 Unknown Past Medical History Medical History Anemia Benign essential hypertension History of blood transfusion (2022) Hx of gastritis (2022) Hx "Due to too many NSAIDs" Hx of psoriasis Hyperlipidemia Osteoarthritis Past Family History Family History Mother Pulmonary embolism Grandfather (Maternal) Lung cancer Father Emphysema, unspecified Past Surgical History Surgical History History of esophagogastroduodenoscopy (EGD) (2022) Hx of colonoscopy Status post left knee replacement (~05/2025) 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) [facility] Social History Smoking Status: Never smoker Do You Dip or Chew Tobacco: No Hx Alcohol Use: Yes Alcohol type: beer alcohol intake frequency: 0-2 drinks per day Hx Substance Use: No substance use type: does not use Lab Results Anesthesia Preop Results Results Anesthesia Widget: WBC 7.55 K/ul (4.8-10.8) 08/06/25 Hgb 12.5 g/dl (14.0-18.0) L 08/06/25 Hct 37.9 % (42.0-52.0) L 08/06/25 Plt 295 K/uL (130-400) 08/06/25 Na 140 mmol/L (136-145) 08/06/25 K 3.8 mmol/L (3.5-5.1) 08/06/25 Cl 102 mmol/L (98-107) 08/06/25 CO2 29 mmol/L (21-32) 08/06/25 BUN 18 mg/dl (6-23) 08/06/25 Creat 0.89 mg/dl (0.6-1.4) 08/06/25 Glucose Level 103 mg/dl (70-99(Fasting)) H 08/06/25 PT 10.3 Seconds (9.0-12.0) 08/06/25 PTT 29 Seconds (21-31) 08/06/25 INR 1.0 (0.9-1.1) 08/06/25 Blood Type A Negative 08/06/25 Antibody Screen NEGATIVE 08/06/25 Testing Laboratory Results * Mild anemia- stable from previous Electrocardiogram Date: 12/24/24 NSR at 88bpm. Low voltage QRS. Inferior infarct, age undetermined. No significant change compared to 04/17/2023 per population geneticist comparison. Chest X-Ray Date: 12/24/24 FINDINGS: Heart size and pulmonary vasculature are normal. No effusion or consolidation. IMPRESSION: No acute findings.
--- NOTE | 2025-09-03 09:56 | History & Physical Report ---
Date of Service September 03, 2025 Assessment & Plan (1) Osteoarthritis of right knee: We will proceed with a right total knee arthroplasty. Postoperatively, he will be started on aspirin for DVT prophylaxis and kept overnight in the hospital for postop medical management. He plans to go to [facility] physical therapy after discharge. History of Present Illness Chief Complaint: Osteoarthritis right knee. Primary Care Provider: ALEX Fung Abilio is a pleasant 60-year-old male who underwent a left total knee arthroplasty in May 2025. He is doing very well with that. He is now complaining of right knee pain. X-rays and clinical exam have been diagnostic for advanced arthritis of the right knee. After failing conservative treatment, he has elected to proceed with a right total knee arthroplasty.. Allergies Allergy/AdvReac Type Severity Reaction Status Date / Time NSAIDS (Non-Steroidal AdvReac Intermediate See below Verified 08/26/25 13:38 Anti-Inflamma Home Medications Medication Instructions Recorded Confirmed Type multivitamin 1 tab PO QAM 04/17/23 08/26/25 History testosterone undecanoate 100 mg 100 mg PO QAM #30 caps 12/16/24 08/26/25 Rx capsule losartan 100 1 tab PO QAM #90 tabs 03/09/25 08/26/25 Rx mg-hydrochlorothiazide 25 mg tablet (Hyzaar) aspirin 81 mg tablet,delayed 81 mg PO BID #84 tabs 05/05/25 08/26/25 Rx release (Adult Aspirin Regimen) oxycodone 5 mg tablet 5 mg PO Q6H PRN pain #30 tabs 05/05/25 08/26/25 Rx amlodipine 2.5 mg tablet 2.5 mg PO QAM #90 tabs 07/16/25 08/26/25 Rx pantoprazole 20 mg tablet,delayed 20 mg PO QAM #90 tabs 07/16/25 08/26/25 Rx release (Protonix) celecoxib 100 mg capsule (Celebrex) 100 mg PO BID #60 caps 07/27/25 08/26/25 Rx atorvastatin 40 mg tablet 40 mg PO QAM 08/26/25 08/26/25 History tramadol 50 mg tablet 50 mg PO DAILY PRN pain #30 tabs 08/31/25 Rx Past Med/Surg History Problem List Encounter for pre-operative examination Osteoarthritis of right knee Status post left knee replacement Osteoarthritis of knees, bilateral Obesity Hyperlipidemia Effusion, left knee (Acute) Arthritis of knee, left Benign essential hypertension Psoriasis Medical History Osteoarthritis Hx of gastritis (2022) Hx "Due to too many NSAIDs" Hx of psoriasis Hyperlipidemia Benign essential hypertension History of blood transfusion (2022) Anemia Surgical History Status post left knee replacement (~05/2025) 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) [facility] Hx of colonoscopy History of esophagogastroduodenoscopy (EGD) (2022) Family History Mother Pulmonary embolism Grandfather (Maternal) Lung cancer Father Emphysema, unspecified Social History Smoking Status: Never smoker Tobacco Type: Cigarettes Age Started Using Tobacco: 12; Age Quit Using Tobacco: 32; packs per day: 1; Second Hand Exposure: No; Do You Dip or Chew Tobacco: No; Tobacco Cessation Education Requested by Patient: No Hx Alcohol Use: Yes Alcohol type: beer Hx Substance Use: No Preferred Language: Luxembourgish Communication Ability: Effective Electric Blanket Wirer Required: No Beliefs That Will Affect Care: None marital status: Legally Current Living Situation: Family Current Living Situation Comment: son Other Information That Helps Us Care for You: No Feels Safe at Home: Yes Safety Concerns: Feels Safe At This Time Assistive Devices: Glasses Review of Systems All systems reviewed & are unremarkable except as noted in HPI & below. Physical Exam On physical exam of the right knee, he is a slight varus deformity. He has tenderness palpation of the distal medial femoral condyle and over the medial joint line.. Constitutional WD/WN, vitals as above Eyes PERRL, conjunctivae normal, anicteric sclerae ENMT external ear and nose normal, oropharynx normal Neck trachea midline, no thyromegaly Respiratory normal respiratory effort Cardiovascular RRR, no murmur, no edema Gastrointestinal (Abdomen) normal bowel sounds, soft, nontender, no hepatosplenomegaly Psychiatric A+Ox3, euthymic affect Results & Data Results & Data Laboratory Results . Diagnostic Findings . PG Care Time/CCT Total # of Minutes Spent Total Time Spent with Patient: Total time spent is greater than 50% in coordination of care (as documented) at patient's floor/unit and/or counseling patient: Coding Level of Care Code None Diagnoses Osteoarthritis of right knee M17.11
[~2025-09-07 07:21] MED LIST changes: -BUPIVACAINE/EPINEPHRINE 0.25% 1:200,000 30 ML VIAL ONE; -DEXAMETHASONE SOD INJ 4 MG/ML VIAL ONE; -MIDAZOLAM HCL 1 MG/ML 2ML VIAL ONE; -PROPOFOL IV EMULSION 10 MG/ML 20 ML VIAL IV ONE; +ROPIVACAINE 0.5% 5 MG/ML 30 ML VIAL ONE
[2025-09-07] MEDS ORDERED: LIDOCAINE 2% 2 ML VIAL/AMP(20MG/ML) INFIL ONE (07:30)
[2025-09-07] MEDS ORDERED: PROPOFOL IV EMULSION 10 MG/ML 100 ML VIAL IV ONE (07:30)
[2025-09-07] MEDS ORDERED: MIDAZOLAM HCL 1 MG/ML 2ML VIAL ONE (07:31)
[2025-09-07] MEDS: LR 500ML BOLUS, THEN 15ML/HR IV SCH (07:54)
[2025-09-07] MEDS: ACETAMINOPHEN 500 MG TAB PO SCH ×2 (07:54→14:19)
[2025-09-07] MEDS: GABAPENTIN 600 MG DOSE PO SCH (07:55)
[2025-09-07] MEDS: dexAMETHasone**PF** 10 MG/ML VIAL IV SCH (07:55)
[2025-09-07] MEDS: FAMOTIDINE 20 MG TAB PO SCH (07:55)
[2025-09-07] MEDS: LR 60ML/HR IV SCH (07:55)
--- NOTE | 2025-09-07 08:11 | History & Physical Bridge Note ---
Date of Service September 07, 2025 History & Physical Bridge Note I have examined the patient, reviewed the History & Physical and in the interval since the performance of the History & Physical I have noted the following changes of clinical significance: no changes noted
[2025-09-07] MEDS ORDERED: ONDANSETRON INJ 2 MG/ML 2 ML VIAL IV PRN ×2 (08:28→12:05)
[2025-09-07] MEDS ORDERED: ATROPINE SULFATE 0.1 MG/ML 10ML SYR IV PRN (08:28)
[2025-09-07] MEDS: TRANEXAMIC ACID 1,000 MG **IV Pre-op IV SCH (08:45)
[2025-09-07] MEDS: ceFAZolin 3000MG 3,000 MG/72.5 ML BAG IV SCH (09:02)
[2025-09-07] MEDS ORDERED: ONDANSETRON INJ 2 MG/ML 2 ML VIAL ONE (09:17)
[2025-09-07] MEDS: ROPIV 0.5% 246mg, Ketorolac 30mg, EPINEPHrine 0.5mg in NSS INFIL SCH (09:41)
[2025-09-07] MEDS: ORTHO JOINT ANESTHETIC ONE (09:42)
[2025-09-07] MEDS ORDERED: ePHEDrine sulfate 50 MG/5 ML SYR ONE ×2 (10:01→10:58)
[2025-09-07] MEDS ORDERED: PHENYLEPHRINE 100MCG/ML 5ML SYR ONE (10:01)
[2025-09-07] MEDS ORDERED: KETAMINE HCL 10MG/ML SYR ONE (10:01)
--- NOTE | 2025-09-07 10:29 | Operative Report ---
PG Post Operative Report Pre & Post Diagnosis Operation Date: 09/07/25 09:10 Pre-Op Diagnosis: Right Knee Arthritis Post-Op Diagnosis: Right Knee Arthritis I identified the patient and participated in the time-out.: Yes Procedure Operation Date: 09/07/25 09:10 Actual Procedures p Robotic Assisted Right Total Knee Arthroplasty, Uncemented - Last Myers DO Surgeon Last Myers DO Mold Polisher Tutu German PA-C Estimated Blood Loss 30 Findings Consistent with Post-Op Diagnosis Specimens Right femoral and tibial bone Description of Procedure Implants used: I used a [employer] total knee arthroplasty system with a size 11 PS narrow femur, F tibia, 35 patella, and a size 12 CPS polyethylene bearing. All compo nents were press-fit into place. Abilio arrived [facility] for the above procedure. He was seen in the preoperative holding area and the operative extremity was identified and signed. he was given a preoperative antibiotic, TXA, a spinal anesthetic and an adductor nerve block. He was taken back to the operating room and laid on the table in supine position. He was given basic sedation. The operative knee was then prepped and draped in sterile fashion. A timeout was done, and the patient and the operative extremity was properly identified. A midline incision was made directly over the patella. Dissection was taken down to the extensor mechanism. A medial parapatellar arthrotomy was used. The medial retinaculum was released and the fat pad was mostly excised. The knee was flexed and the ACL, PCL, and meniscus were removed. The alignment of the knee replacement was assisted with a AOBiome robotic knee. The femoral array was pinned in the distal femur and the tibial array was pinned using a percutaneous technique in the upper shaft of the tibia. The robot was appropriately calibrated and the structure of the knee was mapped out. The components were then manipulated on the screen to account for any malalignment and to assist in gap balancing. Once I was happy with the placement of the components on the screen, a distal femoral cutting guide was brought in place. The distal femur was then resected. The femur measured to be a size 11. A 4-in-1 cutting block was then put into place by the robot and 2 peg holes were drilled. The 4-in-1 cutting block was then impacted into place and anterior, posterior, and chamfer cuts were made. The cutting block was then brought down to the tibia and pinned into place. The proximal tibia was then r esected. The posterior aspect of the knee was then opened up and any additional meniscus fragments and osteophytes were removed. The tibia measured to be a size F. The tibial plate was then placed in the appropriate rotation and the tibia was drilled and punched. Trial components were then placed. The patella was then everted and 9 mm was resected off the posterior aspect of the patella. The patella measured to be a size 35. 3 peg holes were then drilled. A trial patella was placed. A size 12 CPS polyethylene insert was then trialed. The knee was brought through a full range of motion and felt to be stable. Trial components were then removed. The surrounding soft tissues were injected with 100 cc of an orthopedic pain control cocktail. All components were then press-fit into place. The final polyethylene insert was then snapped into place. The tourniquet was deflated. Hemostasis was obtained. An Irrisept lavage was then done for 3 minutes. The joint was then irrigated with normal saline solution. The medial parapatellar arthrotomy was then closed with #1 Vicryl suture. The skin was closed with 2-0 Vicryl, 3-0V lock suture, and Joshua Zipline. A soft compressive dressing was placed. He was then transferred to a hospital bed and taken to the postanesthesia care unit in stable condition. He tolerated the procedure well. Tutu German PA-C, was present for the entire procedure. He was critical for patient positioning, prepping, draping, retraction exposure, wound closure and application of sterile dressing. I attest to the content of the Intraoperative Record and any orders documented therein. Any exceptions are noted below.
--- NOTE | 2025-09-07 11:34 | XRay Report ---
TWO VIEWS RIGHT KNEE CLINICAL HISTORY: Postoperative examination. FINDINGS: AP and crosstable lateral portable views of the right knee are obtained. A right knee arthr oplasty is in near anatomic alignment. There has been undersurface remodeling of the patella. No acut e fracture is seen. Soft tissue edema and subcutaneous gas around the knee are expected postsurgical findings. IMPRESSION: Expected postoperative changes status post right knee arthroplasty. No acute fracture is seen. ACT 112: Negative or not required by law. Electronically signed by: Prosper Snell M.D. 09/07/2025 11:32 AM
--- NOTE | 2025-09-07 11:36 | Anesthesiology Progress Note ---
Date of Service September 07, 2025 Anesthesia Post Procedure Vital Signs Vital Signs: Temp Pulse Pulse Resp BP Pulse Ox O2 Del Method 09/07/25 11:25 95 H 13 112/73 95 Room Air 09/07/25 11:15 98.8 F 96 H 22 118/73 93 Room Air 09/07/25 11:05 90 19 116/74 97 Oxymask 09/07/25 10:55 98.1 F 99 H 19 86/52 L 91 Oxymask 09/07/25 07:30 97.7 F 95 H 18 152/93 H 97 Room Air O2 Flow Rate 09/07/25 11:25 0 09/07/25 11:15 0 09/07/25 11:05 6 09/07/25 10:55 6 09/07/25 07:30 Transfer of Care Handoff Completed per policy Notes Mental Status: alert / awake / arousable and participated in evaluation Patient Amnestic to Procedure: Yes Nausea / Vomiting: adequately controlled Pain: adequately controlled Airway Patency, RR, SpO2: stable & adequate BP & HR: stable & adequate Hydration State: stable & adequate Neuraxial Anesthesia: was administered and sensory block is resolving Anesthetic Complications: no major complications apparent and Pt Satisfied with anesthetic care
[2025-09-07] MEDS ORDERED: HYDROmorphone INJ 0.5 MG/0.5 ML SYR IV PRN (12:05)
[2025-09-07] MEDS ORDERED: METOCLOPRAMIDE HCL INJ 5 MG/ML 2 ML VIAL IV PRN (12:05)
[2025-09-07] MEDS ORDERED: NALOXONE HCL 0.4 MG/1 ML VIAL/CARP IV PRN (12:05)
[2025-09-07] MEDS ORDERED: MAGNESIUM HYDROXIDE SUSP 30 ML UDC PO PRN (12:05)
[2025-09-07] MEDS: SODIUM CHLORIDE 0.9% 1,000 ML IV SCH (14:05)
[2025-09-07] MEDS: KETOROLAC TROMETHAMINE 15 MG/ML VIAL IV SCH (14:19)
[2025-09-07] MEDS: ASPIRIN 81 MG ECTAB PO SCH (21:59)
[2025-09-07] MEDS: SENNA 8.6 MG TAB PO SCH (21:59)
[2025-09-07] MEDS: DOCUSATE SODIUM 100 MG CAP PO SCH (21:59)
[2025-09-08 07:39] VITALS: BP 136/88; PULSE 85; RESP 16; TEMP 97.7; O2SAT 95
[2025-09-08] MEDS: LOSARTAN/HCTZ 50/12.5MG TAB PO SCH (08:08)
[2025-09-08] MEDS: ATORVASTATIN 40 MG TAB PO SCH (08:09)
[2025-09-08] MEDS: MULTIVITAMIN TAB PO SCH (08:09)
--- NOTE | 2025-09-08 08:53 | Orthopedic Progress Note ---
Date of Service September 08, 2025 Assessment & Plan (1) Status post right knee replacement: * Continue Current Treatment * Disposition: home * Daily treatment: Physical Therapy/ Occupational Therapy per protocol * Weight bearing status: WBAT * Continue to monitor for ABLA * Pain control * DVT prophylaxis, ASA * Office/hospital f/u 2 weeks for progress check and staple/suture removal * Plan for discharge today pending PT/OT clearance Subjective . Active Problems: S/p right TKA POD 1 60 y/o male s/p right TKA. Doing well overall, pain managed and improved function. Denies fever/chills, chest pain/SOB, nausea/vomiting. Otherwise no complaints. Review of Systems All systems reviewed & are unremarkable except as noted in HPI & below. Physical Exam . * General: Alert and oriented, no acute distress * Constitutional: well-developed, well-nourished. * Respiratory: Normal respiratory effort, no distress * Gastrointestinal: No tenderness to palpation, no rigidity or guarding. * Skin: No rash or lesion. * Neurologic: Grossly normal * Musculoskeletal: right knee surgical dressing CDI, not removed for exam. Otherwise no obvious deformity or overlying skin changes RLE. Diffuse TTP distal thigh and knee region. Otherwise no specific tenderness of proximal thigh, lower leg, foot/ankle. AROM knee flexion 90 degrees. AROM foot/ankle intact. Sensation intact plantar/dorsal foot. Brisk capillary refill. Results & Data Results & Data Laboratory Results . Diagnostic Findings . Knee X-Ray 09/07/25 11:03 TWO VIEWS RIGHT KNEE CLINICAL HISTORY: Postoperative examination. FINDINGS: AP and crosstable lateral portable views of the right knee are obtained. A right knee arthroplasty is in near anatomic alignment. There has been undersurface remodeling of the patella. No acute fracture is seen. Soft tissue edema and subcutaneous gas around the knee are expected postsurgical findings. IMPRESSION: Expected postoperative changes status post right knee arthroplasty. No acute fracture is seen. ACT 112: Negative or not required by law. Electronically signed by: Prosper Senll M.D. 09/07/2025 11:32 AM PG Care Time/CCT Total # of Minutes Spent Total Time Spent with Patient: Total time spent is greater than 50% in coordination of care (as documented) at patient's floor/unit and/or counseling patient: Coding Level of Care Code 79637 Post Operative Follow-Up Diagnoses Status post right knee replacement Z96.651
== END 2025-09-08 11:46 | disposition home or self-care (01) ==
LOC: 3E 07:21 → ASU 07:21